=== PATIENT | female | born 1945 | race Caucasian/White ===

== ENCOUNTER 2023-02-15 11:53 | Outpatient (CLI) | payer MEDICARE, BC | END 2023-02-15 11:54 | disposition home or self-care (01) | LOC: CSHMAMMO 11:53 | PROVIDERS: ATTEND Internal Medicine | DX: Z12.31 Encounter for screening mammogram for malignant neoplasm of breast (principal); Z85.3 Personal history of malignant neoplasm of breast; Q83.9 Congenital malformation of breast, unspecified; Z98.890 Other specified postprocedural states | CPT/HCPCS: 77063; 77067 ==

== ENCOUNTER 2023-02-18 18:40 | Inpatient (IN) | payer MEDICARE, BC ==
[2023-02-18 19:25] LABS: Bilirubin Neg (Negative); Blood, Urine 25 (Negative); Clarity Cloudy (Clear); Glucose, Urine (Dipstick) Normal (Negative); Ketone, Urine Negative (Negative); Leukocyte 100 (Negative); Nitrite Positive (Negative); Protein, Urine (Dipstick) 100 mg/dl (Neg-Trace); Urobilinogen Normal mg/dL (Less than 2)
[2023-02-18 19:36] LABS: Bacteria/HPF 4+ HPF (None Seen); Squamous Epithelial 0-3 HPF (0-3); WBC/HPF 21-50 HPF (0-3)
[2023-02-18 20:17] LABS: #Eosinphils 0.1 10x3/uL (0.0-0.5); #Monocytes 0.9 10x3/uL (0.0-1.1); #Neutrophils 16.1 10x3/uL (1.5-8.4); %Basophils 0.2 % (0.0-2.0); %Eosinophils 0.5 % (0.0-6.0); %Lymphocytes 8.6 % (18.0-47.0); %Monocytes 4.7 % (0.0-10.0); %Neutrophils 85.5 % (40.0-75.0); Hemoglobin 11.7 g/dL (12.0-15.5); Mean Corpuscular HGB CONC 33.1 g/dL (32.0-36.0); Mean Corpuscular Hemoglobin 29.8 pg (27.0-33.0); Mean Corpuscular Volume 90.1 fl (81.6-98.3); Mean Platelet Volume 10.5 fl (7.4-10.4); RBC Distribution Width 13.5 % (11.5-14.5); Red Blood Cell (RBC) Count 3.93 10x6/uL (3.90-5.03); White Blood Cell (WBC) Count 18.8 10x3/uL (3.5-10.5)
[2023-02-18 20:18] LABS: Platelet Count 114 10x3/uL (150-450)
[2023-02-18 20:20] LABS: ALT (SGPT) 195 U/L (8-55); AST (SGOT) 75 U/L (5-34); Albumin 3.5 g/dL (3.4-4.8); Alkaline Phosphatase 147 U/L (40-110); Anion Gap 13 mmol/L (10-20); BUN (Urea Nitrogen) 28 mg/dL (9.8-20.1); Bilirubin, Total 0.4 mg/dL (0.2-1.2); Calc. Creatinine Clearance 0 mL/min (70-130); Calcium 9.7 mg/dL (7.8-10.44); Carbon Dioxide 22 mmol/L (23-31); Chloride 107 mmol/L (98-107); Estimated GFR 53; Globulin 2.7 g/dL (2.4-3.5); Glucose 109 mg/dL (83-110); Potassium 4.2 mmol/L (3.5-5.1); Protein, Total 6.2 g/dL (5.8-8.1); Sodium 138 mmol/L (136-145)
[2023-02-18] MEDS ORDERED: cefTRIAXone (ROCEPHIN) 2 GM VIAL ONE (21:33)
[2023-02-18] MEDS ORDERED: Fentanyl 100 MCG/2 ML VIAL ONE (22:53)
[2023-02-18] MEDS ORDERED: PROPOFOL 20 ML ONE (22:53)
[2023-02-18] MEDS ORDERED: ePHEDrine Sulfate 50 MG/10 ML VIAL ONE (22:54)
[2023-02-18] MEDS ORDERED: Iopamidol 30 ML ONE (22:56)
[2023-02-18] MEDS ORDERED: Famotidine/PF 20 mg/2ml Vial ONE (23:01)
[2023-02-18] MEDS ORDERED: Succinylcholine 200 MG/10 ml SYRINGE FS ONE (23:36)
[2023-02-18] MEDS ORDERED: Lidocaine 1% PF 5 ML VIAL ONE (23:36)
[2023-02-18] MEDS ORDERED: Ondansetron PF 4 MG/2 ML Vial ONE (23:45)
[2023-02-18] MEDS ORDERED: Dexamethasone 4 mg/ml Vial ONE (23:45)
[2023-02-19] MEDS ORDERED: Ondansetron ODT 4 MG TAB PO PRN (00:02)
[2023-02-19] MEDS ORDERED: Acetaminophen 325 MG TAB PO PRN (00:02)
[2023-02-19] MEDS ORDERED: HYDROcodone/Acetaminophen 5/325 mg Tablet PO PRN (00:02)
[2023-02-19 00:45] VITALS: BMI 23.4
[2023-02-19] MEDS: Sodium Chloride 0.9% 1,000 ML IV SCH ×2 (00:57→18:23)
[2023-02-19 05:02] LABS: #Monocytes 0.5 10x3/uL (0.0-1.1); #Neutrophils 13.7 10x3/uL (1.5-8.4); %Basophils 0.1 % (0.0-2.0); %Eosinophils 0.1 % (0.0-6.0); %Lymphocytes 5.8 % (18.0-47.0); %Monocytes 3.2 % (0.0-10.0); %Neutrophils 90.4 % (40.0-75.0); Hemoglobin 10.4 g/dL (12.0-15.5); Mean Corpuscular HGB CONC 32.5 g/dL (32.0-36.0); Mean Corpuscular Hemoglobin 29.6 pg (27.0-33.0); Mean Corpuscular Volume 91.2 fl (81.6-98.3); Mean Platelet Volume 11.1 fl (7.4-10.4); Platelet Count 102 10x3/uL (150-450); RBC Distribution Width 13.6 % (11.5-14.5); Red Blood Cell (RBC) Count 3.51 10x6/uL (3.90-5.03); White Blood Cell (WBC) Count 15.1 10x3/uL (3.5-10.5)
[2023-02-19 05:14] LABS: ALT (SGPT) 137 U/L (8-55); AST (SGOT) 46 U/L (5-34); Alkaline Phosphatase 129 U/L (40-110)
[2023-02-19 05:20] LABS: Anion Gap 13 mmol/L (10-20); BUN (Urea Nitrogen) 18 mg/dL (9.8-20.1); Calc. Creatinine Clearance 67 mL/min (70-130); Calcium 8.1 mg/dL (7.8-10.44); Carbon Dioxide 15 mmol/L (23-31); Chloride 116 mmol/L (98-107); Estimated GFR 75; Glucose 160 mg/dL (83-110); Magnesium 1.9 mg/dL (1.6-2.6); Potassium 4.4 mmol/L (3.5-5.1); Sodium 140 mmol/L (136-145)
[2023-02-19] MEDS: Famotidine 20 MG TAB PO SCH ×2 (10:41→21:29)
[2023-02-19] MEDS ORDERED: Pregabalin 50 MG CAP PO SCH ×2 (18:15→21:00)
[2023-02-19] MEDS ORDERED: cefTRIAXone\\ROCEPHIN 2 GM in Sodium Chloride 0.9% 100 ML IVPB SCH (21:00)
[2023-02-19] MEDS: Cefepime 1 GM in Sodium Chloride 0.9% 100 ML IVPB SCH (21:23)
[2023-02-19] MEDS: traZODone HCl 50 MG TAB PO SCH (21:29)
[2023-02-19] MEDS: Rosuvastatin 10 MG TAB PO SCH (21:29)
[2023-02-19] MEDS: traMADol HCl 50 MG TAB PO SCH (21:30)
[2023-02-20 05:06] LABS: #Monocytes 0.9 10x3/uL (0.0-1.1); #Neutrophils 12.3 10x3/uL (1.5-8.4); %Basophils 0.1 % (0.0-2.0); %Lymphocytes 11.3 % (18.0-47.0); %Monocytes 6.1 % (0.0-10.0); %Neutrophils 81.4 % (40.0-75.0); Hemoglobin 10.4 g/dL (12.0-15.5); Mean Corpuscular HGB CONC 33.2 g/dL (32.0-36.0); Mean Corpuscular Hemoglobin 29.7 pg (27.0-33.0); Mean Corpuscular Volume 89.4 fl (81.6-98.3); Mean Platelet Volume 10.8 fl (7.4-10.4); Platelet Count 129 10x3/uL (150-450); RBC Distribution Width 13.7 % (11.5-14.5); White Blood Cell (WBC) Count 15.1 10x3/uL (3.5-10.5)
[2023-02-20 05:10] LABS: Anion Gap 13 mmol/L (10-20); BUN (Urea Nitrogen) 17 mg/dL (9.8-20.1); Calc. Creatinine Clearance 70 mL/min (70-130); Calcium 8.7 mg/dL (7.8-10.44); Carbon Dioxide 20 mmol/L (23-31); Chloride 115 mmol/L (98-107); Estimated GFR 79; Glucose 126 mg/dL (83-110); Potassium 4.4 mmol/L (3.5-5.1); Sodium 144 mmol/L (136-145)
[2023-02-20] MEDS: Sodium Chloride 0.9% 1,000 ML IV SCH (06:57)
[2023-02-20] MEDS: Pregabalin 50 MG CAP PO SCH ×2 (09:15→20:09)
[2023-02-20] MEDS: Cefepime 1 GM in Sodium Chloride 0.9% 100 ML IVPB SCH ×2 (09:15→20:10)
[2023-02-20] MEDS: traMADol HCl 50 MG TAB PO SCH ×2 (09:15→20:10)
[2023-02-20] MEDS ORDERED: Senokot 8.6 MG TAB PO PRN (09:16)
[2023-02-20] MEDS: Famotidine 20 MG TAB PO SCH ×2 (09:17→20:10)
[2023-02-20] MEDS ORDERED: Senokot 8.6 MG TAB PO SCH (09:30)
[2023-02-20] MEDS: traZODone HCl 50 MG TAB PO SCH (20:09)
[2023-02-20] MEDS: Rosuvastatin 10 MG TAB PO SCH (20:10)
[2023-02-21] MEDS: Sodium Chloride 0.9% 1,000 ML IV SCH ×2 (01:35→09:04)
[2023-02-21 08:16] LABS: #Eosinphils 0.1 10x3/uL (0.0-0.5); #Monocytes 1.3 10x3/uL (0.0-1.1); #Neutrophils 5.7 10x3/uL (1.5-8.4); %Basophils 0.3 % (0.0-2.0); %Eosinophils 0.5 % (0.0-6.0); %Lymphocytes 20.9 % (18.0-47.0); %Monocytes 14.5 % (0.0-10.0); %Neutrophils 61.8 % (40.0-75.0); Hemoglobin 10.8 g/dL (12.0-15.5); Mean Corpuscular HGB CONC 33.2 g/dL (32.0-36.0); Mean Corpuscular Hemoglobin 29.3 pg (27.0-33.0); Mean Corpuscular Volume 88.1 fl (81.6-98.3); Mean Platelet Volume 10.3 fl (7.4-10.4); Platelet Count 164 10x3/uL (150-450); RBC Distribution Width 13.7 % (11.5-14.5); Red Blood Cell (RBC) Count 3.69 10x6/uL (3.90-5.03); White Blood Cell (WBC) Count 9.2 10x3/uL (3.5-10.5)
[2023-02-21 08:35] LABS: ALT (SGPT) 81 U/L (8-55); AST (SGOT) 25 U/L (5-34); Albumin 2.9 g/dL (3.4-4.8); Alkaline Phosphatase 122 U/L (40-110); Anion Gap 13 mmol/L (10-20); BUN (Urea Nitrogen) 12 mg/dL (9.8-20.1); Bilirubin, Total 0.5 mg/dL (0.2-1.2); Calc. Creatinine Clearance 65 mL/min (70-130); Calcium 8.8 mg/dL (7.8-10.44); Carbon Dioxide 22 mmol/L (23-31); Chloride 110 mmol/L (98-107); Estimated GFR 72; Globulin 2.5 g/dL (2.4-3.5); Glucose 90 mg/dL (83-110); Potassium 3.6 mmol/L (3.5-5.1); Protein, Total 5.4 g/dL (5.8-8.1); Sodium 141 mmol/L (136-145)
[2023-02-21] MEDS: Pregabalin 50 MG CAP PO SCH ×2 (09:04→20:59)
[2023-02-21] MEDS: Famotidine 20 MG TAB PO SCH ×2 (09:05→21:00)
[2023-02-21] MEDS: traMADol HCl 50 MG TAB PO SCH ×2 (09:05→20:59)
[2023-02-21] MEDS: Cefepime 1 GM in Sodium Chloride 0.9% 100 ML IVPB SCH ×2 (09:05→21:01)
[2023-02-21] MEDS: traZODone HCl 50 MG TAB PO SCH (21:00)
[2023-02-21] MEDS: Rosuvastatin 10 MG TAB PO SCH (21:00)
[2023-02-22] MEDS: Sodium Chloride 0.9% 1,000 ML IV SCH ×2 (04:00→12:21)
[2023-02-22] MEDS: traMADol HCl 50 MG TAB PO SCH ×2 (08:45→20:38)
[2023-02-22] MEDS: Famotidine 20 MG TAB PO SCH ×2 (08:48→20:41)
[2023-02-22] MEDS: Pregabalin 50 MG CAP PO SCH ×2 (08:48→20:40)
[2023-02-22] MEDS: Cefepime 1 GM in Sodium Chloride 0.9% 100 ML IVPB SCH ×2 (12:21→20:37)
[2023-02-22] MEDS: Rosuvastatin 10 MG TAB PO SCH (20:39)
[2023-02-22] MEDS: traZODone HCl 50 MG TAB PO SCH (20:39)
[2023-02-23] MEDS: Sodium Chloride 0.9% 1,000 ML IV SCH ×2 (00:41→14:30)
[2023-02-23] MEDS: traMADol HCl 50 MG TAB PO SCH ×2 (08:45→20:50)
[2023-02-23] MEDS: Famotidine 20 MG TAB PO SCH ×2 (08:45→20:50)
[2023-02-23] MEDS: Pregabalin 50 MG CAP PO SCH ×2 (08:46→20:53)
[2023-02-23] MEDS: Cefepime 1 GM in Sodium Chloride 0.9% 100 ML IVPB SCH ×2 (08:46→20:53)
[2023-02-23] MEDS ORDERED: ALPRAZolam 0.5 MG TAB PO PRN (17:13)
[2023-02-23] MEDS: traZODone HCl 50 MG TAB PO SCH (20:50)
[2023-02-23] MEDS: Rosuvastatin 10 MG TAB PO SCH (20:50)
[2023-02-24 08:43] LABS: #Basophils 0.1 10x3/uL (0.0-0.2); #Eosinphils 0.2 10x3/uL (0.0-0.5); #Monocytes 0.7 10x3/uL (0.0-1.1); #Neutrophils 9.2 10x3/uL (1.5-8.4); %Basophils 0.6 % (0.0-2.0); %Eosinophils 1.7 % (0.0-6.0); %Lymphocytes 18.2 % (18.0-47.0); %Monocytes 5.7 % (0.0-10.0); %Neutrophils 72.1 % (40.0-75.0); Hemoglobin 11.6 g/dL (12.0-15.5); Mean Corpuscular HGB CONC 32.4 g/dL (32.0-36.0); Mean Corpuscular Hemoglobin 28.9 pg (27.0-33.0); Mean Corpuscular Volume 89.3 fl (81.6-98.3); Mean Platelet Volume 9.4 fl (7.4-10.4); Platelet Count 341 10x3/uL (150-450); RBC Distribution Width 13.5 % (11.5-14.5); Red Blood Cell (RBC) Count 4.01 10x6/uL (3.90-5.03); White Blood Cell (WBC) Count 12.7 10x3/uL (3.5-10.5)
[2023-02-24 08:44] LABS: Anion Gap 14 mmol/L (10-20); BUN (Urea Nitrogen) 12 mg/dL (9.8-20.1); Calc. Creatinine Clearance 74 mL/min (70-130); Calcium 9.3 mg/dL (7.8-10.44); Carbon Dioxide 23 mmol/L (23-31); Chloride 110 mmol/L (98-107); Estimated GFR 84; Glucose 92 mg/dL (83-110); Potassium 3.9 mmol/L (3.5-5.1); Sodium 143 mmol/L (136-145)
[2023-02-24] MEDS ORDERED: Fish Oil 1,000 MG CAP PO SCH (09:00)
[2023-02-24] MEDS ORDERED: Aspirin 81 mg Enteric Coated Tablet PO SCH (09:00)
[2023-02-24] MEDS ORDERED: Sodium Chloride 0.9% 100 ML ONE (09:59)
[2023-02-24] MEDS ORDERED: Cefepime 1 GM VIAL ONE (09:59)
[2023-02-24] MEDS: Cefepime 1 GM in Sodium Chloride 0.9% 100 ML IVPB SCH (11:17)
[2023-02-24] MEDS: Pregabalin 50 MG CAP PO SCH (11:18)
[2023-02-24] MEDS: Famotidine 20 MG TAB PO SCH (11:19)
[2023-02-24] MEDS: traMADol HCl 50 MG TAB PO SCH (11:19)
[2023-02-24 17:42] VITALS: BP 135/63; TEMP 99.4
== END 2023-02-24 17:43 | disposition home health service (06) | DRG 854 ==
LOC: CSHERS 18:40 → CSHTELE 02-19 00:02
PROVIDERS: ADMIT Urology; ATTEND Family Medicine
PROC: 0T778DZ Dilation of Left Ureter with Intraluminal Device, Via Natural or Artificial Opening Endoscopic (ICD-10-PCS; principal; 2023-02-18)
PROC: 3E03329 Introduction of Other Anti-infective into Peripheral Vein, Percutaneous Approach (ICD-10-PCS; 2023-02-18)
PROC: 02HV33Z Insertion of Infusion Device into Superior Vena Cava, Percutaneous Approach (ICD-10-PCS; 2023-02-24)
DX: A41.89 Other specified sepsis (principal); N13.6 Pyonephrosis; E78.5 Hyperlipidemia, unspecified; R74.8 Abnormal levels of other serum enzymes; R74.01 Elevation of levels of liver transaminase levels; G62.9 Polyneuropathy, unspecified; Z92.21 Personal history of antineoplastic chemotherapy; Z92.3 Personal history of irradiation; Z88.2 Allergy status to sulfonamides; Z88.1 Allergy status to other antibiotic agents; Z91.040 Latex allergy status; Z79.899 Other long term (current) drug therapy; Z85.3 Personal history of malignant neoplasm of breast; Z83.3 Family history of diabetes mellitus; Z82.49 Family history of ischemic heart disease and other diseases of the circulatory system
CPT/HCPCS: 36415; 36569; 51600; 74176; 74430; 80048; 80053; 81003; 81015; 83605; 83735; 84075; 84450; 84460; 85025; 87040; 87077; 87086; 87149; 87186; 93005; 96365; C1751; C2617; J0692; J0696; J1100; J1580; J1650; J2405; J2704; J3010; J3490; J7050; Q9967; S0028

== ENCOUNTER 2023-03-02 13:27 | Outpatient (CLI) | payer MEDICARE, BC | END 2023-03-02 13:28 | disposition home or self-care (01) | LOC: CSHMAMMO 13:27 | PROVIDERS: ATTEND Internal Medicine | DX: Q83.8 Other congenital malformations of breast (principal); R92.8 Other abnormal and inconclusive findings on diagnostic imaging of breast | CPT/HCPCS: 77065; G0279 ==